=== PATIENT | male | born 1965 | race Caucasian/White ===

== ENCOUNTER → 2022-05-01 14:28 | Outpatient (CLI) | payer OTHER, SELFPAY ==
--- NOTE | ~2022-05-01 | MR_ITS ---
EXAMINATION: MR knee LT wo con DATE: 05/01/2022 15:10 INDICATION: Left knee pain TECHNIQUE: Magnetic resonance imaging (MRI) of the left knee was performed without intravenous contra st. Sequences included coronal PD-weighted FSE, coronal PD-weighted FS FSE, sagittal T2-weighted FSE , sagittal PD-weighted FS FSE and axial PD weighted fat saturated FSE. COMPARISON: None. FINDINGS: Medial compartment: Complex tear extending to involve both the free edge in the inferior articular surface of the posteri or horn of the medial meniscus. The tear extends into the posterior body where there is peripheral an d inferior subluxation of a small vessel flap along the inferior aspect of the peripheral third of th e meniscus which projects slightly below the rim of the posterior medial aspect of the medial tibial plateau. Diffuse partial thickness chondral ulceration with partial thickness cartilage loss and becca dral surface irregularity along the weightbearing medial femoral condyle. This most severe at the wilfred tral weightbearing medial femoral condyle where it involves greater than 50% of the cartilage thickne ss. There is some deep chondral fissuring with underlying subarticular edema-like signal change at th e anteriormost weightbearing medial femoral condyle. Cartilage along the medial tibial plateau is rel atively preserved. There is however prominent marrow edema underlying the medial aspect of the medial tibial plateau right with subtle linear low signal paralleling and a 2-3 mm deep to the articular co rtex which suggests a subarticular stress fracture which may be related to altered weight distributio n resulting from the meniscal tear. Lateral compartment: Lateral meniscus is normal. Articular cartilage is normal. Patellofemoral compartment: Partial-thickness chondral fissuring without degenerative subchondral changes along the medial side o f the medial patellar facet. Deep chondral ulceration with cortical irregularity, small central subch ondral osteophytes and mild subarticular edema-like signal change involving significant portion of th e medial trochlea and trochlear groove and extending to involve the inferomedial aspect of the latera l trochlea. Ligaments and tendons: Anterior and posterior cruciate ligaments are normal. The fibular collateral ligament complex is norm al. There is edema extending along the proximal aspect of the medial collateral ligament which appear s otherwise normal and more likely reactive related to the adjacent meniscal tear and medial tibial p lateau fracture rather than low-grade sprain of the medial collateral ligament. The extensor mechanis m is normal. The visualized medial and lateral hamstring tendons as well as the iliotibial band are n ormal. Fluid: Moderate-sized left knee joint effusion with mild to moderate scattered synovitis at the suprapatella r pouch and along the posterior margin of Hoffa's fat pad. No loose osteochondral bodies identified. Osseous/other: Bone alignment is normal. No other fractures aside from the previous noted subarticular fracture the medial tibial plateau. No pathologic marrow replacing process. IMPRESSION: 1. Small nondisplaced subarticular fracture line at the medial side of the medial tibial plateau like ly related to altered stress distribution resulting from a complex tear of the medial meniscus. 2. 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 3. Moderate-sized left knee joint effusion. Reviewed, dictated and finalized at location A. IMPRESSION: 1. Small nondisplaced subarticular fracture line at the medial side of the medi al tibial plateau likely related to altered stress distribution resulting from a complex t
== END ==
PROVIDERS: PCP Physician Assistant; Visit Provider Physician Assistant
DX: M17.12 Unilateral primary osteoarthritis, left knee (principal); M25.462 Effusion, left knee
CPT/HCPCS: 73721